=== PATIENT | male | born 1945 | race Two or more races ===

== ENCOUNTER 2018-04-22 18:06 | Emergency (ER) | payer OTHER, MEDICAID ==
[~2018-04-22] VITALS: Ht 157.5 cm; Wt 51.7 kg
--- NOTE | 2018-04-22 18:10 | NUR ---
L SIDED CHEST PAIN R/T NECK. WAS GIVEN ASPIRIN 162 MG NO NITRO GIVEN IN FIELD, BS 340 IN FIELD. PT AAOX3, DENIES SOB, DIZZINESS, SUAREZ, N/V @ THIS TIME. PLACED ON MONITOR, NSR NO ECTOPY NOTED. AWAITING EVAL BY .
[2018-04-22 19:01] LABS: CALCIUM, SERUM 8.6 mg/dL (8.5-10.1); CARBON DIOXIDE 29 mmol/L (21-32); CHLORIDE 105 mmol/L (98-107); CREATININE 1.1 mg/dL (0.6-1.3); GLUCOSE 325 mg/dL (74-106); SODIUM SERUM 136 mmol/L (136-145); UREA NITROGEN, BLOOD 12 mg/dL (7-18)
[2018-04-22 19:12] LABS: TROPONIN I < 0.017 ng/mL (0.00-0.056)
[2018-04-22 19:30] VITALS: BP 112/70
--- NOTE | 2018-04-22 19:30 | NUR ---
PT STABLE DENIES CP, SOB, N/V, ARM/JAW PAIN @ THIS TIME. PT STS " I FEEL BETTER NOW ". PT REFUSING TO BE ADMITTED, DR. POOLE NOTIFIED.
[2018-04-22] MEDS ORDERED: FENO145T35 PO (19:42)
[2018-04-22] MEDS ORDERED: LOSA25TA13 PO (19:42)
[2018-04-22] MEDS ORDERED: SITA50TA PO (19:42)
[2018-04-22 19:49] LABS: BASOPHILS % (AUTO) 0.4 % (0.0-2.0); EOSINOPHILS % (AUTO) 2.9 % (0.0-6.0); HEMATOCRIT 33 % (39-51); HEMOGLOBIN 11.2 g/dL (13.5-17.5); LYMPHOCYTES # (AUTO) 1.3 /CMM (0.8-4.8); LYMPHOCYTES % (AUTO) 18.2 % (20.0-44.0); MEAN CORPUSCULAR HEMOGLOBIN 33 PG (26.0-33.0); MEAN CORPUSCULAR HGB CONC 34 g/dl (31.0-36.0); MEAN CORPUSCULAR VOLUME 96 fL (80-96); MONOCYTES # (AUTO) 0.5 /CMM (0.1-1.30); MONOCYTES % (AUTO) 6.5 % (2.0-12.0); NEUTROPHILS # (AUTO) 5.3 /CMM (1.8-8.9); PLATELET COUNT (AUTO) 325 /CMM (150-450); RDW COEFFICIENT OF VARIATION 14.8 (11.5-15.0); RED BLOOD CELL COUNT(AUTO) 3.41 MIL/uL (4.5-6.0); WHITE BLOOD COUNT (AUTO) 7.4 K/uL (4.3-11.0)
[2018-04-22] MEDS ORDERED: IV NS 0.9% 1,000 ML BAG IV ONE (20:30)
--- NOTE | 2018-04-22 20:45 | NUR ---
PT SIGNED AMA FORM, REFUSED TO BE ADMITTED. PT STS " I'LL JUST SEE MY DOCTOR TOMORROW" . DR. POOLE AWARE. PT AMB WITH STEADY GAIT UPON LEAVING ED.
== END 2018-04-22 21:05 | disposition left against medical advice (07) ==
LOC: ER 18:08
DX: R07.89 Other chest pain (principal); E11.65 Type 2 diabetes mellitus with hyperglycemia; I10 Essential (primary) hypertension; Z88.0 Allergy status to penicillin; Z88.1 Allergy status to other antibiotic agents; Z88.8 Allergy status to other drugs, medicaments and biological substances
CPT/HCPCS: 36415; 71045; 80048; 84484; 85025; 87081; 93005; 99285; A4606; J7030; Z7610

== ENCOUNTER 2021-02-06 13:13 | Emergency (ER) | payer OTHER, MEDICAID ==
[~2021-02-06] VITALS: Ht 160 cm; Wt 49.9 kg
[~2021-02-06 13:13] MED LIST: FENO145T21 PO; LOSA25TA27 PO; SITA50TA PO
--- NOTE | 2021-02-06 13:30 | NUR ---
c/o constipation x today, denies pain. Patient a/ox4, breathing even and unlabored, no sob noted. Needs attended.
[2021-02-06] MEDS ORDERED: BISACODYL SUPP (10 MG) 10 MG/SUPP.RECT SUPP.RECT RC ONE ×2 (14:30→14:53)
[2021-02-06 14:56] LABS: BASOPHILS # (AUTO) 0.1 /CMM (0.0-0.2); BASOPHILS % (AUTO) 0.5 % (0.0-2.0); EOSINOPHILS % (AUTO) 0.4 % (0.0-6.0); HEMATOCRIT 26 % (39-51); HEMOGLOBIN 13.2 g/dL (13.5-17.5); LYMPHOCYTES # (AUTO) 0.9 /CMM (0.8-4.8); LYMPHOCYTES % (AUTO) 8.5 % (20.0-44.0); MEAN CORPUSCULAR HGB CONC 51 g/dl (31.0-36.0); MEAN CORPUSCULAR VOLUME 112 fL (80-96); MONOCYTES # (AUTO) 0.4 /CMM (0.1-1.30); MONOCYTES % (AUTO) 4.2 % (2.0-12.0); NEUTROPHILS # (AUTO) 8.7 /CMM (1.8-8.9); NEUTROPHILS % (AUTO) 86.4 % (43.0-81.0); PLATELET COUNT (AUTO) 316 /CMM (150-450); RED BLOOD CELL COUNT(AUTO) 2.33 MIL/uL (4.5-6.0)
[2021-02-06 15:21] LABS: BILIRUBIN,URINE NEGATIVE (NEGATIVE); COLOR,URINE YELLOW (YELLOW); LEUKOCYTE ESTERASE ,URINE NEGATIVE (NEGATIVE); NITRITE, URINE NEGATIVE (NEGATIVE); PH,URINE 5.5 (5.0-8.0); PROTEIN,URINE NEGATIVE (NEGATIVE); UGLUCOSE >=1000 mg/dL (NEGATIVE); UROBILINOGEN,URINE 0.2 EU/dL (0.2)
[2021-02-06 15:25] LABS: CALCIUM, SERUM 8.7 mg/dL (8.5-10.1); CREATININE 0.9 mg/dL (0.6-1.3); POTASSIUM 4.5 mmol/L (3.5-5.1)
[2021-02-06 15:30] LABS: BACTERIA,URINE None seen /HPF (None Seen); MUCUS,URINE Few /LPF (None Seen); RBC,URINE 0-2 /HPF (0-2); SPERM,URINE Moderate /HPF (None Seen); SQUAMOUS EPITHELIAL CELL,UR Rare /HPF (None Seen); URINE AMORPHOUS URATE Few /HPF (None Seen); WBC,URINE 0-2 /HPF (0-3)
[2021-02-06] MEDS ORDERED: IOHEXOL-300 100 ML VIAL IV ONE (15:42)
[2021-02-06] MEDS ORDERED: IV NS 0.9% 250 ML IV ONE (15:43)
[2021-02-06] MEDS ORDERED: CT SWABBABLE VALVE TRANS SET 1 EA INFUS.SET MC ONE (15:43)
[2021-02-06 15:55] LABS: ALBUMIN 3.9 g/dL (3.4-5.0); BILIRUBIN,DIRECT 0.4 mg/dL (0.0-0.2); BILIRUBIN,TOTAL 1.9 mg/dL (0.2-1.0); TOTAL PROTEIN, SERUM 7.3 g/dL (6.4-8.2)
[2021-02-06] MEDS ORDERED: POLY17PO4 PO (17:40)
[2021-02-06] MEDS ORDERED: NA P133E RC (17:41)
--- NOTE | 2021-02-06 18:09 | NUR ---
PATIENT STILL UNABLE TO HAVE A BM. PATIENT A/OX4, AMBULATORY, DENIES PAIN. IV removed. Catheter intact and site benign. Pressure and 4x4 applied to site. No bleeding noted.Patient discharged to home in stable condition. Written and verbal after care instructions given. Patient verbalizes understanding of instruction.
[2021-02-06 18:10] VITALS: BP 121/50
== END 2021-02-06 18:10 | disposition home or self-care (01) ==
LOC: ER 13:13
DX: K59.00 Constipation, unspecified (principal); R91.1 Solitary pulmonary nodule; R79.89 Other specified abnormal findings of blood chemistry; D64.9 Anemia, unspecified; I10 Essential (primary) hypertension; E78.5 Hyperlipidemia, unspecified; E11.9 Type 2 diabetes mellitus without complications; Z90.49 Acquired absence of other specified parts of digestive tract; Z88.0 Allergy status to penicillin; Z88.1 Allergy status to other antibiotic agents; Z88.8 Allergy status to other drugs, medicaments and biological substances; Z79.899 Other long term (current) drug therapy
CPT/HCPCS: 36415; 74177; 76705; 80048; 80076; 81001; 83690; 85025; 99285; J7050; Q9967